=== PATIENT | female | born 1950 | race Caucasian/White ===

== ENCOUNTER 2020-02-02 06:00 | Day surgery (SDC) | payer OTHER ==
[~2020-02-02 06:00] MED LIST: LEXAPRO20 MG PO; LIPITOR40 M1 PO
== END 2020-02-02 10:20 | disposition home or self-care (01) ==
LOC: CIR.AMB 06:00
PROVIDERS: ATTEND Plastic Surgery
DX: S60.351A Superficial foreign body of right thumb, initial encounter (principal); Z20.828 Contact with and (suspected) exposure to other viral communicable diseases